=== PATIENT | female | born 1965 | race Caucasian/White ===

== ENCOUNTER → 2016-09-05 | Outpatient (CLI) | payer MEDICARE ==
[~2016-09-05] MED LIST: CITALOPRAM HBR40 MG PO; DITROPAN PO; ESTRACE2 MG PO; GLUCOPHAGE500 MG PO; LASIX20 MG PO; MAGNESIUM500 MG PO; MODAFINIL200 MG PO; NEURONTIN800 MG PO; POTASSIUM CHLOR8 MEQ PO; SYMBICORT INH; XIIDRA1 EACH OU
--- NOTE | ~2016-09-05 | EKG ---
PATIENT: BEATRIZ KAY UNIT #: [id number] Ventricular Rate: 74 BPM Atrial Rate: 74 BPM P-R Interval: 162 ms QRS Duration: 82 ms Q-T Interval: 420 ms QTC Calculation(Bezet): 466 ms P Corinna: 52 degrees Calculated R Corinna: 50 degrees Calculated T Corinna: 39 degrees Diagnosis Line: Normal sinus rhythm Diagnosis Line: Normal ECG Diagnosis Line: No previous ECGs available Diagnosis Line: Confirmed by BILL CARR MD ([id number]) on 09/08/2016 Diagnosis Line: 7:20:53 AM INTERPRETING MD: BRUNO PEACOCK
--- NOTE | ~2016-09-05 | CR63 ---
[facility] A Service of [facility] RADIOLOGY TEXT RESULTS PATIENT: BEATRIZ KAY LOCATION: [facility] : 63 UNIT #: [id number] AGE: [address]: Link Barger III, MD SEX: F ORDER DR: [id number] [facility] [address] [place], [place] [address] [id number] O MR#: [id number] Acc #: [id number] NAME: BEATRIZ KAY : 1965 SEX: F STUDY DATE/TIME: 09/05/2016 8:53 UNIT: [facility] ROOM: STUDY DESCRIPTION: CR Chest 2 View Attending Physician: Link Barger III, M.D. Ordering Physician: Link Barger III, M.D. Primary Care Physician: Generic Doctor Not In System MEDICAL IMAGING REPORT This report is preliminary unless electronic signature is present EXAM Chest 09/05/2016 HISTORY 50-year-old female patient preop clearance for laparoscopic adjustable gastric band placement and possible paraesophageal hernia repair. Patient gives history of asthma and diabetes. COMPARISON None. FINDINGS 2-view chest demonstrates borderline cardiac enlargement with large body habitus. There is a small approximate 11 mm nodule projecting in the left upper lobe with benign characteristics. There is however no comparison chest to confirm stability. Recommend chest follow up in approximately 3 months. Lungs appear otherwise clear and costophrenic angles preserved. IMPRESSION 1. Borderline cardiac enlargement. 2. Indeterminate but probable benign nodule left upper lobe with short-interval, 3-month follow up recommended in the absence of comparison chest images. Large body habitus noted. Dictated by... Sukhwinder Frost M.D. THIS IS AN ELECTRONICALLY VERIFIED REPORT Sukhwinder Frost M.D. at 09/05/2016 1:45 PM PORTILLO/rhonda TD: 09/05/2016 12:11 [facility] A Service of [facility] RADIOLOGY TEXT RESULTS PATIENT: BEATRIZ KAY LOCATION: [facility] #: [id number] : [birth year] UNIT #: [id number] AGE: [address]: Link Barger III, MD SEX: F ORDER DR: JOB #: [id number] MEDICAL IMAGING REPORT COPY
--- NOTE | ~2016-09-05 | CR97 ---
[facility] A Service of [facility] RADIOLOGY TEXT RESULTS PATIENT: BEATRIZ KAY LOCATION: [facility] : 63 UNIT #: [id number] AGE: [address]: Link Barger III, MD SEX: F ORDER DR: [id number] [facility]. [place], [place] [address] [id number] O MR#: [id number] Acc #: [id number] NAME: BEATRIZ KAY : 1965 SEX: F STUDY DATE/TIME: 09/05/2016 9:22 UNIT: [facility] ROOM: STUDY DESCRIPTION: CR Esophagram Attending Physician: Link Barger III, M.D. Ordering Physician: Link Barger III, M.D. Primary Care Physician: Generic Doctor Not In System MEDICAL IMAGING REPORT This report is preliminary unless electronic signature is present EXAM Esophagram 09/05/2016 INDICATION 50-year-old female presenting for preop evaluation for lap-band placement and possible paraesophageal hernia repair. Asthma, diabetes. TECHNIQUE AND COMPARISON Spot fluoroscopic views of the esophagus were obtained in various projections after the patient ingested gas crystals and thick and thin liquid barium on 09/05/2016. There are no comparisons. FINDINGS Notes indicate 0.8 minutes of fluoroscopy time was used in the case. 60 spot fluoroscopic views from the procedure were saved to the [employer] system. The esophagus demonstrates an unremarkable primary stripping wave. No significant secondary or tertiary contractions identified. No focal esophageal mass, mucosal abnormality, or stricture identified. No hiatal hernia. IMPRESSION 1. Negative esophagram. 2. Notes indicate 0.8 minutes of fluoroscopy time was used in the case. 60 images from the fluoroscopy procedure were saved to the [employer] system. Dictated by... Randell Serrano M.D. THIS IS AN ELECTRONICALLY VERIFIED REPORT Randell Serrano M.D. at 09/05/2016 5:20 PM SID/harshal [facility] A Service of [facility] RADIOLOGY TEXT RESULTS PATIENT: BEATRIZ KAY LOCATION: [facility] #: [id number] : 63 UNIT #: [id number] AGE: [address]: Link Barger III, MD SEX: F ORDER DR: TD: 09/05/2016 13:44 JOB #: [id number] MEDICAL IMAGING REPORT COPY
[2016-09-05 10:10] LABS: HEMATOCRIT 39.4 % (35.0-45.0); MEAN CELL VOLUME 88.4 FL (83-96); MEAN CORPUSCULAR HEMOGLOBIN 29.2 PG (28-34); MEAN CORPUSCULAR HGB CONC 33.1 g/dL (30-36); MEAN PLATELET VOLUME 8.6 FL (6.5-11.5); RED BLOOD COUNT 4.46 X10e (3.90-5.30); RED CELL DISTRIBUTION WIDTH 13.9 % (11.0-15.5); WHITE BLOOD COUNT 9.2 X10e3 (4.0-10.5)
[2016-09-05 10:49] LABS: ALBUMIN SERUM 3.5 g/dL (3.5-5.0); ALKALINE PHOSPHATASE 68 U/L (32-92); ALT (SGPT) 24 U/L (10-40); AST (SGOT) 31 U/L (10-42); BILIRUBIN,TOTAL 0.8 mg/dL (0.2-2.0); BLOOD UREA NITROGEN 10 mg/dL (9-23); BUN/CREATININE RATIO 14.28; CALCIUM SERUM 9.6 mg/dL (8.4-10.2); CARBON DIOXIDE 28 mmol/L (22-31); CHLORIDE 101 mmol/L (100-111); CHOLESTEROL 209 mg/dL (0-200); CREATININE SERUM 0.7 mg/dL (0.6-1.4); GLOM FILT RATE Estimated ABOVE60 mL/min (>60); GLUCOSE FASTING 116 mg/dL (70-110); HDL CHOLESTEROL 56 mg/dL (35-95); LDL CHOLESTEROL 122 mg/dL (-130); LDL/HDL RATIO 2 RATIO (0-4); PROTEIN TOTAL SERUM 7.3 g/dL (6.0-8.3); SODIUM 137 mmol/L (135-145); TRIGLYCERIDES 153 mg/dL (10-160)
== END | disposition home or self-care (01) ==
LOC: CRAD 08:39
PROVIDERS: Surgery
DX: Z01.818 Encounter for other preprocedural examination (principal); R91.8 Other nonspecific abnormal finding of lung field
CPT/HCPCS: 36415; 71020; 74220; 80053; 80061; 84443; 85027; 93005

== ENCOUNTER → 2016-09-17 | Day surgery (SDC) | payer MEDICARE ==
--- NOTE | ~2016-09-17 | OR ---
Unit #: [id number] #: [id number] Patient: BEATRIZ KAY [id number] [facility] [address] [place], [place] [address] [id number] O MR#: [id number] NAME: BEATRIZ KAY ROOM: Date of Procedure: 09/17/2016 Admission Date: 09/17/2016 Surgeon: Link Barger III, M.D. : 1965 Attending Physician: Link Barger III, M.D. OPERATIVE REPORT PREOPERATIVE DIAGNOSIS Chronic morbid obesity. POSTOPERATIVE DIAGNOSIS Chronic morbid obesity. SECONDARY DIAGNOSIS Anterior paraesophageal hernia. PROCEDURE PERFORMED Laparoscopic adjustable gastric banding (AP standard with regular port) and laparoscopic paraesophageal hernia repair. PUTTER IN Dr. Brock Gan. SPECIMENS None. COMPLICATIONS None apparent. ESTIMATED BLOOD LOSS Minimal. ANESTHESIA General endotracheal tube anesthesia. INDICATIONS FOR PROCEDURE This is a 50-year-old lady, who has chronic morbid obesity with a BMI of 59 and associated comorbidities of sleep apnea and diabetes. She has been through the bariatric program at [facility] and understands the risks and benefits of the procedure. DESCRIPTION OF PROCEDURE After consent was obtained, including the risks and benefits of slippage, erosion, port dysfunction, and possible failure of weight loss due to noncompliance, the patient was taken to the operating room and placed in the supine position. General anesthetic was administered and the abdomen was prepped and draped in standard surgical fashion. I began by making a 2 cm incision just above and to the left of the Unit #: [id number] #: [id number] Patient: BEATRIZ KAY umbilicus. I used a Visiport to enter the peritoneal cavity without any difficulty. C02 pneumoperitoneum was then established. Next, I placed a 5 mm port in the right upper quadrant, a 5 mm Alyce liver retractor in the subxiphoid region to provide exposure of the gastroesophageal junction. Next, a 10 mm port was placed in the left upper quadrant and a 5 mm port was placed in the left lateral subcostal region. I began by performing an examination of the GE junction to evaluate for a hiatal hernia. We then scored the peritoneal attachments overlying the angle of His. I then opened up the clear space in the gastrohepatic ligament, and then using 2 blunt graspers, I identified the small fat pad crossing over the right crura. I swept the fat anterior to the crura off the crura and using the pars flaccida, I created a retrogastric tunnel where the blunt grasper exited at the angle of His. Once I had made this tunnel safely, I then inserted an Allergan AP band into the abdominal cavity. This adjustable gastric band was then place around the upper part of the stomach and fastened and buckled anteriorly. We then tacked the lateral fundus over the band to the proximal pouch with 2 interrupted 0 Ethibond sutures. I then used a third stitch to imbricate the excess anterior stomach by going from the lesser curvature up towards where the last stitch was placed. We then had excellent hemostasis. I removed the Alyce liver retractor. We then removed the port tubing through the initial port incision. The rest of the ports were removed, and the pneumoperitoneum was released. I then left a small tail on the tubing. We then attached the port to the excess band tubing. We placed a piece of Prolene mesh along the back side of the port and used a Prolene stitch to anchor this mesh in place. We then trimmed the excess mesh so that just a small footprint of mesh was in place behind the port. I then inserted the tubing back into the abdominal cavity, and we placed the port into a small pocket that was made just inferior to where our initial port incision was made. The mesh was in direct contact with the fascia, and this will scar in place to hold the port in place. We then injected all the port sites with 0.25% plain Marcaine, and I reapproximated the skin edges with interrupted 4-0 Vicryl subcuticular sutures. Steri-strips were then applied. The patient tolerated the procedure without any problems and returned to the recovery room in stable condition. ADDENDUM After exposure of the GE junction, the patient was noted to have a small to medium size anterior paraesophageal hernia. I scored the phrenoesophageal ligament, reduced the hernia defect and after identifying both the right and left crura, I reapproximated the defect with an interrupted 0 Ethibond [id number] suture. Additional details, the band did appear to fit fairly snug after we had it in position. I then unbuckled the band and scored the fat pad along the lesser curvature of the stomach, so that it would sit without as much restriction around the stomach. Additionally at the end of the case, I accessed the port with a noncoring Frank needle and withdrew as much air and fluid as I could from the system. Dictated by... Link Brager III, M.D. VCL/georgina TD: 09/18/2016 07:10 Unit #: [id number] #: [id number] Patient: BEATRIZ KAY JOB #: [id number] CC: Kalyan Andujar M.D. OPERATIVE REPORT Page 1 of 1 X Link Barger III, MD X PROCEDURE OPERATIVE NOTE
--- NOTE | ~2016-09-17 | CR7 ---
[facility] A Service of [facility] RADIOLOGY TEXT RESULTS PATIENT: BEATRIZ KAY LOCATION: [facility] : 63 UNIT #: [id number] AGE: [address]: Link Barger III, MD SEX: F ORDER DR: [id number] [facility] [address] [place], [place] [address] [id number] O MR#: [id number] Acc #: [id number] NAME: BEATRIZ KAY : 1965 SEX: F STUDY DATE/TIME: 09/17/2016 10:54 UNIT: [facility] ROOM: STUDY DESCRIPTION: CR Abdomen Single AP View Attending Physician: Link Barger III, M.D. Ordering Physician: Link Barger III, M.D. Primary Care Physician: Primary Care Physician No MEDICAL IMAGING REPORT This report is preliminary unless electronic signature is present EXAM Supine radiograph of the abdomen 09/17/2016 HISTORY Postop Lap-Band placement. Morbid obesity. Short of air with activity. Asthma. FINDINGS Supine radiograph of the abdomen presented. Right hemiabdomen not included in the field of view. Patient is status post placement of Lap-Band device. Band component at anticipated location of gastroesophageal junction given the esophagram dated 09/05/2016. The band component is oriented approximately 47 degrees from vertical. The catheter component appears radiographically intact. Port component implanted over the left paracentral low abdomen. Visualized bowel gas pattern normal. No free air. Dictated by... Brock Mccallum M.D. THIS IS AN ELECTRONICALLY VERIFIED REPORT Brock Mccallum M.D. at 09/18/2016 5:56 PM CHARLY/familia TD: 09/17/2016 12:25 JOB #: [id number] MEDICAL IMAGING REPORT Page 1 of 1 COPY
== END | disposition home or self-care (01) ==
LOC: CSUR 07:27
DX: E66.01 Morbid (severe) obesity due to excess calories (principal); K44.9 Diaphragmatic hernia without obstruction or gangrene; E11.9 Type 2 diabetes mellitus without complications; G47.30 Sleep apnea, unspecified; J45.909 Unspecified asthma, uncomplicated; M19.90 Unspecified osteoarthritis, unspecified site; F41.9 Anxiety disorder, unspecified; Z68.43 Body mass index [BMI] 50.0-59.9, adult; Z87.891 Personal history of nicotine dependence; Z79.2 Long term (current) use of antibiotics; Z79.899 Other long term (current) drug therapy; Z90.49 Acquired absence of other specified parts of digestive tract; Z90.89 Acquired absence of other organs; Z90.710 Acquired absence of both cervix and uterus; Z98.51 Tubal ligation status; Z98.890 Other specified postprocedural states
CPT/HCPCS: 74000; 82947; C1781; J0330; J0690; J1650; J1885; J2250; J2405; J2710; J3010